=== PATIENT | female | born 1995 | race Caucasian/White ===

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

== ENCOUNTER 2019-12-07 15:19 | Outpatient (CLI) | payer OTHER ==
[2019-12-07 20:05] LABS: CANDIDA GROUP DNA NEGATIVE (NEGATIVE); CANDIDA KRUSEI DNA NEGATIVE (NEGATIVE); TRICHOMONAS VAGINALIS DNA NEGATIVE (NEGATIVE)
[2019-12-07 20:56] LABS: TRICHOMONAS VAGINALIS DNA NEGATIVE (NEGATIVE)
== END 2019-12-07 23:59 | disposition home or self-care (01) ==
LOC: LAB.R 15:19
PROVIDERS: ATTEND Advanced Practice Midwife
DX: R10.2 Pelvic and perineal pain (principal)
CPT/HCPCS: 87491; 87591; 87661; 87801

== ENCOUNTER 2020-03-04 13:55 | Emergency (ER) | payer MEDICAID, OTHER ==
--- NOTE | 2020-03-04 14:30 | ED Physician Documentation ---
PD HPI ABD PAIN - Stated complaint Stated Complaint: SPOTTING - Chief complaint Chief Complaint: Abd Pain - History obtained from History obtained from: Patient - Additional information Additional information: at 7w weeks with 2 days spotting, now more like a period. Review of Systems Ten Systems: 10 systems reviewed and negative Constitutional: reports: Reviewed and negative Throat: reports: Reviewed and negative Cardiac: reports: Reviewed and negative Respiratory: reports: Reviewed and negative PD PAST MEDICAL HISTORY - Past Medical History Psych: Depression - Past Surgical History Past Surgical History: No General: Appendectomy HEENT: Tonsil/Adenoidectomy - Present Medications Home Medications: Ambulatory Orders Medication Instructions Recorded Confirmed Antidepression Pill X2 11/18/15 Bcpatch 11/18/15 FLUoxetine [PROzac] 15 mg PO DAILY 10/07/16 10/07/16 - Allergies Allergies/Adverse Reactions: Allergies Allergy/AdvReac Type Severity Reaction Status Date / Time No Known Drug Allergies Allergy Verified 03/04/20 14:05 - Social History Does the pt smoke?: No Smoking Status: Never smoker Does the pt drink ETOH?: No Does the pt have substance abuse?: No PD ED PE NORMAL - Vitals Vital signs reviewed: Yes - General General: Alert and oriented X 3, No acute distress - Abdomen Abdomen: Normal bowel sounds, Soft, Non tender - Back Back: No CVA TTP, No spinal TTP - Derm Derm: Normal color, Warm and dry - Extremities Extremities: No edema, No calf tenderness / cord - Neuro Neuro: Alert and oriented X 3, Normal speech Results - Vitals Vitals: Vital Signs - 24 hr 03/04/20 03/04/20 03/04/20 14:05 14:42 16:35 Temperature 36.5 C 36.9 C 36.5 C Heart Rate 73 78 83 Respiratory 16 16 18 Rate Blood Pressure 140/70 H 125/71 117/61 O2 Saturation 100 100 98 Oxygen O2 Source Room air - Labs Labs: Laboratory Tests 03/04/20 03/04/20 03/04/20 14:40 14:40 14:40 WBC 9.3 RBC 5.14 Hgb 13.9 Hct 41.9 MCV 81.5 MCH 27.0 MCHC 33.2 RDW 13.7 Plt Count 318 MPV 10.0 Neut # (Auto) 5.3 Lymph # (Auto) 3.0 Pierce # (Auto) 0.7 Eos # (Auto) 0.1 Baso # (Auto) 0.1 Absolute Nucleated RBC 0.00 Nucleated RBC % 0.0 Sodium 139 Potassium 3.6 Chloride 102 Carbon Dioxide 27 Anion Gap 10.0 BUN 12 Creatinine 0.6 Estimated GFR (MDRD) 125 Glucose 96 Calcium 9.6 Total Bilirubin 0.7 AST 20 ALT 17 Alkaline Phosphatase 63 Total Protein 7.7 Albumin 4.5 Globulin 3.2 Albumin/Globulin Ratio 1.4 Lipase 32 HCG, Quant Urine Color Urine Clarity Urine pH Ur Specific [place] Urine Protein Urine Glucose (UA) Urine Ketones Urine Occult Blood Urine Nitrite Urine Bilirubin Urine Urobilinogen Ur Leukocyte Esterase Urine RBC Urine WBC Ur Squamous Epith Cells Urine Bacteria Ur Microscopic Review Urine Culture Comments Blood Type O POSITIVE 03/04/20 03/04/20 14:40 15:10 WBC RBC Hgb Hct MCV MCH MCHC RDW Plt Count MPV Neut # (Auto) Lymph # (Auto) Pierce # (Auto) Eos # (Auto) Baso # (Auto) Absolute Nucleated RBC Nucleated RBC % Sodium Potassium Chloride Carbon Dioxide Anion Gap BUN Creatinine Estimated GFR (MDRD) Glucose Calcium Total Bilirubin AST ALT Alkaline Phosphatase Total Protein Albumin Globulin Albumin/Globulin Ratio Lipase HCG, Quant 2953.00 Urine Color YELLOW Urine Clarity CLEAR Urine pH 6.5 Ur Specific [place] <=1.005 Urine Protein NEGATIVE Urine Glucose (UA) NEGATIVE Urine Ketones NEGATIVE Urine Occult Blood SMALL H Urine Nitrite NEGATIVE Urine Bilirubin NEGATIVE Urine Urobilinogen 0.2 (NORMAL) Ur Leukocyte Esterase NEGATIVE Urine RBC 0-5 Urine WBC 0-3 Ur Squamous Epith Cells FEW Squamous Urine Bacteria None Seen Ur Microscopic Review INDICATED Urine Culture Comments NOT INDICATED Blood Type - Rads (name of study) OB sono Radiology: EMP read contemporaneously (Reassuring with single live intrauterine concordant with dates) Departure - Departure Disposition: Home, Self Care Clinical Impression: Threatened Condition: Good Record reviewed to determine appropriate education?: Yes Instructions: ED Miscarriage Poss Follow-Up: [facility] [Provider Group] Comments: Return for worsening symptoms, follow-up with OB in a week for recheck. Discharge Date/Time: 03/04/20 16:43
[2020-03-04 14:47] LABS: BASOPHILS # (AUTO) 0.1 10^3/uL (0.0-0.1); BASOPHILS % (AUTO) 0.9 %; EOSINOPHILS # (AUTO) 0.1 10^3/uL (0.0-0.7); EOSINOPHILS % (AUTO) 1.3 %; HGB - HEMOGLOBIN 13.9 g/dL (12.0-16.0); LYMPHOCYTES % (AUTO) 32.7 %; MEAN CORPUSCULAR HGB CONC 33.2 g/dL (32.0-36.0); MEAN CORPUSCULAR VOLUME 81.5 fL (81.0-99.0); MONOCYTES # (AUTO) 0.7 10^3/uL (0.0-1.0); MONOCYTES % (AUTO) 7.2 %; NEUTROPHILS # (AUTO) 5.3 10^3/uL (1.5-6.6); NEUTROPHILS % (AUTO) 57.6 %; PLT - PLATELET COUNT 318 10^3/uL (130-450); RED BLOOD COUNT 5.14 10^6/uL (4.20-5.40); RED CELL DISTRIBUTION WIDTH 13.7 % (12.0-15.0); WHITE BLOOD COUNT 9.3 x10^3/uL (4.8-10.8)
[2020-03-04 15:02] LABS: ALBUMIN 4.5 g/dL (3.2-5.5); ALBUMIN/GLOBULIN RATIO 1.4 (1.0-2.2); BILIRUBIN,TOTAL 0.7 mg/dL (0.2-1.0); CALCIUM 9.6 mg/dL (8.5-10.3); CREATININE 0.6 mg/dL (0.4-1.0); TOTAL PROTEIN 7.7 g/dL (6.7-8.2)
[2020-03-04 16:07] LABS: BILIRUBIN,URINE NEGATIVE (NEGATIVE); GLUCOSE, URINE (UA) NEGATIVE (NEGATIVE); KETONES,URINE (UA) NEGATIVE (NEGATIVE); LEUKOCYTE ESTERASE, URINE NEGATIVE (NEGATIVE); NITRITE,URINE NEGATIVE (NEGATIVE); OCCULT BLOOD,URINE SMALL (NEGATIVE); PH,URINE 6.5 PH (5.0-7.5); PROTEIN,URINE NEGATIVE (NEGATIVE); UROBILINOGEN,URINE 0.2 (NORMAL) E.U./dL (NORMAL)
[2020-03-04 16:14] LABS: CLARITY,URINE CLEAR (CLEAR)
--- NOTE | 2020-03-04 16:34 | Ultrasound Report ---
PROCEDURE: OB First Trimester INDICATIONS: spotting/7w OUTSIDE/PRIOR DATING DATA: Last menstrual period (LMP): 01/15/2020. LMP-based estimated date of delivery (MATILDA): 10/21/2020. First dating scan (date and location): 03/04/2020. Estimated date of delivery (MATILDA) from first dating scan: 10/28/2020. TECHNIQUE: Real-time scanning was performed of the fetus and maternal pelvic organs, with image documentation. COMPARISON: None available FINDINGS: Embryo: There is an intrauterine gestational sac seen, with a pole present, which measures 0.3 7 cm, which corresponds to an estimated gestational age of 6 weeks 0 days. cardiac activity is seen, with a measured heart rate of 114 bpm. No significant perigestational/subchorionic hemorrhag e can be seen. Measurement variability in dating: +/- 4 weeks by LMP, +/- 7 days by mean sac diameter (use before 6 weeks gestation if crown-rump length not able to be measured), +/- 5 days by crown-rump length (6-12 weeks gestation). Maternal organs: Ovaries are unremarkable, with a right corpus luteum seen. Limited images through the kidneys demonstrate no hydronephrosis. IMPRESSION: Single live intrauterine . No significant discrepancy is found between the estimated gestational age based upon these images and the estimated gestational age based upon the given date of the last menstrual period. On these images, no significant findings of subchorionic hemorrhage can be seen. Reviewed by: Bruce South MD on 03/04/2020 3:33 PM OBINNA Approved by: Bruce South MD on 03/04/2020 3:33 PM AKMARVIN Station ID: [id number]
[2020-03-04 16:36] VITALS: BP 117/61
[2020-03-04 16:38] LABS: BACTERIA,URINE None Seen /HPF (None Seen); RBC,URINE 0-5 /HPF (0-5); SQUAMOUS EPITHELIAL CELL,UR FEW Squamous (<= Few)
--- NOTE | 2020-03-04 16:52 | Ultrasound Report ---
PROCEDURE: OB Transvaginal INDICATIONS: spotting/7w OUTSIDE/PRIOR DATING DATA: Last menstrual period (LMP): 01/15/2020. LMP-based estimated date of deliv livier (MATILDA): 10/21/2020. First dating scan (date and location): 03/04/2020. Estimated date of delivery (E DD) from first dating scan: 10/28/2020. TECHNIQUE: Real-time scanning was performed of the fetus and maternal pelvic organs, with image documentation. COMPARISON: None available FINDINGS: Embryo: The re is an intrauterine gestational sac seen, with a pole present, which measures 0.37 cm, which corresponds to an estimated gestational age of 6 weeks 0 days. cardiac activity is seen, with a measured heart rate of 114 bpm. No significant perigestational/subchorionic hemorrhage can be seen. Measurement variability in dating: +/- 4 weeks by LMP, +/- 7 days by mean sac diameter (use before 6 weeks gestation if crown-rump length not able to be measured), +/- 5 days by crown-rump length (6-12 weeks gestation). Maternal organs: Ovaries are unremarkable, with a right corpus luteum seen. Limit ed images through the kidneys demonstrate no hydronephrosis. IMPRESSION: Single live intrauterine . No significant discrepancy is found between the estimated gestational age based upon the se images and the estimated gestational age based upon the given date of the last menstrual period. On these images, no significant findings of subchorionic hemorrhage can be seen. Reviewed by: Bruce South MD on 03/04/2020 3:51 PM OBINNA Approved by: Bruce South MD on 03/04/2020 3:51 PM OBINNA Station ID: [id number]
== END 2020-03-04 16:43 | disposition home or self-care (01) ==
LOC: ED 13:55
DX: O20.0 Threatened abortion (principal); Z3A.01 Less than 8 weeks gestation of pregnancy
CPT/HCPCS: 36415; 76801; 76817; 80053; 81001; 81003; 83690; 84702; 85025; 86900; 86901; 87086; 99283; 99284

== ENCOUNTER 2020-03-06 14:59 | Outpatient (CLI) | payer MEDICAID | END 2020-03-06 15:00 | disposition home or self-care (01) | LOC: LAB 14:59 | PROVIDERS: ATTEND Advanced Practice Midwife | DX: O03.4 Incomplete spontaneous abortion without complication (principal); Z32.01 Encounter for pregnancy test, result positive | CPT/HCPCS: 36415; 86900; 86901 ==

== ENCOUNTER 2020-06-22 21:46 | Emergency (ER) | payer MEDICAID ==
--- NOTE | 2020-06-22 22:07 | ED Physician Documentation ---
PD HPI FEMALE - Stated complaint Stated Complaint: FEMALE - Chief complaint Chief Complaint: UTI - History obtained from History obtained from: Patient - History of Present Illness Timing - onset: Yesterday Timing - details: Abrupt onset Associated symptoms: Dysuria, Urinary frequency. No: Fever Recently seen: Not recently seen - Additional information Additional information: c/o suprapubic pain and pressure, burning dysuria, urinary frequency, sensation of incomplete voiding, small amounts of UO despite frequent urge to urinate. symptoms started yesterday Review of Systems Constitutional: denies: Fever, Chills, Sweats GI: denies: Abdominal Pain : reports: Dysuria, Frequency. denies: Hematuria, Now EGA PD PAST MEDICAL HISTORY - Past Medical History Cardiovascular: None Respiratory: None Neuro: None, Head injury, Migraines Endocrine/Autoimmune: None GI: None DIRECTOR LIFE INSURANCE: None : None HEENT: None Psych: Depression Musculoskeletal: None Derm: None - Past Surgical History Past Surgical History: No General: Appendectomy HEENT: Tonsil/Adenoidectomy - Present Medications Home Medications: Ambulatory Orders Medication Instructions Recorded Confirmed Nitrofurantoin [Macrobid] 100 mg PO BID #10 capsule 06/22/20 Phenazopyridine HCl [Pyridium] 200 mg PO TID PRN #6 tablet 06/22/20 buPROPion [Wellbutrin Sr] 06/22/20 hydrOXYzine HCL [Hydroxyzine HCl] PRN 06/22/20 - Allergies Allergies/Adverse Reactions: Allergies Allergy/AdvReac Type Severity Reaction Status Date / Time No Known Drug Allergies Allergy Verified 06/22/20 21:51 - Social History Does the pt smoke?: No Smoking Status: Never smoker Does the pt drink ETOH?: No Does the pt have substance abuse?: No - Immunizations Immunizations are current?: Yes PD ED PE NORMAL - Vitals Vital signs reviewed: Yes - General General: Alert and oriented X 3, No acute distress, Well developed/nourished - Abdomen Abdomen: Soft, Non tender - Back Back: No CVA TTP Results - Vitals Vitals: Vital Signs - 24 hr 06/22/20 06/22/20 21:49 22:48 Temperature 37 C 36.9 C Heart Rate 93 85 Respiratory 16 16 Rate Blood Pressure 135/77 H 135/70 H O2 Saturation 100 100 Oxygen O2 Source Room air - Labs Labs: Laboratory Tests 06/22/20 21:53 Urine Color YELLOW Urine Clarity HAZY Urine pH 7.0 Ur Specific [place] 1.025 Urine Protein 30 H Urine Glucose (UA) 100 H Urine Ketones 15 H Urine Occult Blood MODERATE H Urine Nitrite NEGATIVE Urine Bilirubin NEGATIVE Urine Urobilinogen 2 H Ur Leukocyte Esterase NEGATIVE Urine RBC 11-25 H Urine WBC 6-10 H Ur Squamous Epith Cells NONE SEEN Amorphous Sediment Few Urine Bacteria Few Ur Microscopic Review INDICATED Urine Culture Comments INDICATED Urine HCG, Qual NEGATIVE PD MEDICAL DECISION MAKING - ED course Complexity details: considered differential, d/w patient Departure - Departure Disposition: 01 Home, Self Care Clinical Impression: Urinary tract infection Condition: Good Instructions: ED UTI Cystitis Female Prescriptions: Nitrofurantoin [Macrobid] 100 mg PO BID #10 capsule Phenazopyridine HCl [Pyridium] 200 mg PO TID PRN #6 tablet PRN Reason: dysuria Discharge Date/Time: 06/22/20 22:50
[2020-06-22 22:12] LABS: GLUCOSE, URINE (UA) 100 mg/dL (NEGATIVE); KETONES,URINE (UA) 15 mg/dL (NEGATIVE); LEUKOCYTE ESTERASE, URINE NEGATIVE (NEGATIVE); NITRITE,URINE NEGATIVE (NEGATIVE); OCCULT BLOOD,URINE MODERATE (NEGATIVE); PROTEIN,URINE 30 mg/dL (NEGATIVE); UROBILINOGEN,URINE 2 E.U./dL (NORMAL)
[2020-06-22 22:18] LABS: BILIRUBIN,URINE NEGATIVE (NEGATIVE); CLARITY,URINE HAZY (CLEAR); HCG UR QUAL NEGATIVE; ICTOTEST,URINE NEGATIVE
[2020-06-22 22:22] LABS: AMORPHOUS SEDIMENT,UR Few /LPF; BACTERIA,URINE Few /HPF (None Seen); SQUAMOUS EPITHELIAL CELL,UR NONE SEEN (<= Few)
[2020-06-22] MEDS ORDERED: NITROFURANTOIN MACRO 100 MG CAPSULE PO STA (22:31)
[2020-06-22] MEDS ORDERED: PHENAZOPYRIDINE 100 MG TABLET PO STA (22:31)
[2020-06-22 22:50] VITALS: BP 135/70
== END 2020-06-22 22:50 | disposition home or self-care (01) ==
LOC: ED 21:46
DX: N39.0 Urinary tract infection, site not specified (principal)
CPT/HCPCS: 81001; 81025; 87086; 99283; A9270; 81003; 87077; 87181